=== PATIENT | male | born 1960 | race Caucasian/White ===

== ENCOUNTER 2016-08-15 11:11 | Observation (INO) | payer BC ==
[2016-08-03 12:12] LABS: BASO % 0.4 %; BASO ABS # 0.02 K/uL (0-0.2); COMPLETE YES; EOS % 1.2 %; HEMATOCRIT 40.3 % (42-52); IG% 0.2 %; LYMPH ABS # 1.55 K/uL (1.2-3.4); MEAN CELL VOLUME 84.7 fL (80-100); MEAN CORPUSCULAR HEMOGLOBIN 30.5 pg (25-34); MEAN PLATELET VOLUME 10.3 fL (7.4-10.4); NEUT % 61.2 %; PLATELET COUNT 247 K/uL (130-400); RED BLOOD COUNT 4.76 M/uL (4.7-6.1); WHITE BLOOD COUNT 5.16 K/uL (4.8-10.8)
[2016-08-03 12:16] LABS: URINE APPEARANCE CLEAR (CLEAR); URINE BILIRUBIN NEG (NEG); URINE COLOR YELLOW; URINE NITRITE NEG (NEG); URINE SPECIFIC GRAVITY 1.015 (1.000-1.030); UROBILINOGEN NEG (NEG)
[2016-08-03 12:20] LABS: MANUAL MICROSCOPIC REQUIRED? NO; REVIEW REQ? NO
[2016-08-03 12:21] LABS: PROTHROMBIN TIME (PATIENT) 10.8 SECONDS (9.0-12.0)
[2016-08-03 12:33] LABS: BLOOD UREA NITROGEN 14 mg/dl (7-18); BUN/CREATININE RATIO 19.2 (10-20); CARBON DIOXIDE 29 mmol/L (21-32); CHLORIDE 109 mmol/L (98-107); CREATININE 0.72 mg/dl (0.60-1.40); GLUCOSE 79 mg/dl (70-99); POTASSIUM 3.8 mmol/L (3.5-5.1); SODIUM 144 mmol/L (136-145)
--- NOTE | 2016-08-03 13:27 | DIAGNOSTIC IMAGING REPORT ---
CHEST 2 VIEWS ROUTINE CLINICAL HISTORY: Preoperative evaluation. COMPARISON STUDY: No previous studies for comparison. FINDINGS: Lung volumes are normal. Lungs are clear. There is no pneumothorax or pleural effusion. Cardiac size is normal. Mediastinal contours are normal. There are cholecystectomy clips. There is no evidence of pulmonary edema. IMPRESSION: No acute cardiopulmonary findings. Electronically signed by: Landen Felipe M.D. 08/03/2016 1:26 PM Dictated Date/Time: 08/03/2016 1:25 PM
[2016-08-04 08:10] VITALS: BMI 25.0
--- NOTE | 2016-08-14 09:21 | HISTORY & PHYSICAL EXAMINATION ---
DATE OF ADMISSION: 08/15/2016 FACILITY: [facility]. PROCEDURE: Lumbar spine diskectomy L4-L5, possible instrumentation, and possible fusion L4-L5. HISTORY OF PRESENT ILLNESS: Dolores is a delightful gentleman. He is 56 years of age. He is significantly compromised. He has tried all sorts of conservative measures. He has failed. He is debilitated. He has severe back and lower extremity difficulty. He needs resolution. PAST MEDICAL HISTORY: Negative. PAST SURGICAL HISTORY: Cholecystectomy and shoulder surgery. ALLERGIES: Negative to medications. CURRENT MEDICATIONS: Gabapentin and hydrocodone. FAMILY HISTORY: Negative heart disease and DVT. SOCIAL HISTORY: No alcohol and tobacco abuse. REVIEW OF SYSTEMS: In 12 systems, he denies any fevers, sweats, chills, or any bowel and bladder issues. No pain, cough, or sneeze. Denies chest pain or palpitations. Denies asthma, wheezing, or shortness of breath. No nausea, vomiting or change in bowel or bladder habits. PHYSICAL EXAMINATION: VITAL SIGNS: Height 5 feet 11 inches and weight 185. Blood pressure 120/80, pulse of 80, respiratory rate of 16, and temperature 97.4. GENERAL: Alert and oriented. Mentation normal. HEENT: Pupils react to light and accommodation. Ear, nose and throat clear. CARDIAC: Normal S1 and S2. No S3. EXTREMITIES: He has good capillary refill to his extremities. He has appropriate reflexes, right and left. No clonus or upper extremity difficulty. No skin rashes. He has significant pain with straight leg raising on the right. Slight weakness of dorsiflexion. X-ray showed fairly significant disk herniation at L4-L5, right nerve impingement and facet joint hypertrophy. IMPRESSION: Significant disk herniation at L4-L5 on the right with facet joint hypertrophy. DISPOSITION: Will be laminectomy and diskectomy. We are concerning of possibility of fusion or motion preserving technology with the patient. We are getting the paperwork done. Back brace for support. He is ____. Surgery should be coming up in tomorrow. This will be at [facility] on the 15 of August. I anticipate his hospital stay to be 24-48 hours.
[2016-08-15] VITALS (7 sets, daily range): BP systolic 118–142; BP diastolic 75–91; PULSE 67–97; TEMP 36.7–37.1; O2SAT 93–97; Ht 180.3 cm; Wt 84.1 kg
[~2016-08-15] VITALS: Ht 180.3 cm; Wt 84.1 kg
[~2016-08-15 11:11] MED LIST: CEFAZOLIN 2000 MG/60 ML D5W 60 ML IV SCH; KETO10TA PO; LACTATED RINGER'S 1000ML 1,000 ML IV SCH; NSS 1000ML IV SCH; OXYC-643 PO
[2016-08-15] MEDS ORDERED: LIDOCAINE HCL 2% 2 ML VIAL (20MG/ML) ONE (14:15)
[2016-08-15] MEDS ORDERED: PROPOFOL IV EMULSION 10 MG/ML 20 ML VIAL IV ONE ×2 (14:15→17:51)
[2016-08-15] MEDS ORDERED: NEOSTIGMINE METHYLSULFATE 5 MG/5 ML SYR ONE (14:15)
[2016-08-15] MEDS ORDERED: FENTANYL CITRATE INJ 50 MCG/1 ML 2 ML VIAL ONE ×4 (14:15→18:29)
[2016-08-15] MEDS ORDERED: ONDANSETRON INJ 2 MG/ML 2 ML VIAL ONE (14:15)
[2016-08-15] MEDS ORDERED: GLYCOPYRROLATE INJ 0.2 MG/ML VIAL ONE ×2 (14:15→17:32)
[2016-08-15] MEDS ORDERED: MIDAZOLAM HCL 1 MG/ML 2ML VIAL ONE (14:15)
[2016-08-15] MEDS ORDERED: ROCURONIUM BROMIDE 10 MG/ML 5 ML VIAL ONE (14:15)
[2016-08-15] MEDS ORDERED: DEXAMETHASONE SOD INJ 4 MG/ML VIAL ONE (14:15)
[2016-08-15] MEDS ORDERED: VANCOMYCIN HCL 1000MG/20ML VIAL ONE (16:05)
[2016-08-15] MEDS ORDERED: GELATIN SPONGE SZ 100 ONE (16:06)
[2016-08-15] MEDS ORDERED: THROMBIN FOR SOLN 20000 UNIT KIT ONE (16:06)
--- NOTE | 2016-08-15 16:07 | History & Physical Bridge Note ---
H&P Re-Evaluation Bridge Note: I have examined the patient, reviewed the History & Physical and in the interval since the performance of the History & Physical I have noted the following changes of clinical significance: No changes noted
[2016-08-15] MEDS ORDERED: BACITRACIN 50000 UNIT VIAL ONE (16:08)
[2016-08-15] MEDS ORDERED: BUPIVACAINE/EPINEPHRINE 0.5% MPF 1:200,000 30 ML VIAL ONE ×2 (16:32)
--- NOTE | 2016-08-15 18:07 | [facility] Post Operative Brief Note ---
Immediate Operative Summary Operative Date Aug 15, 2016. Pre-Operative Diagnosis disc herniation L4-L5, right, with facet joint hypertrophy Post-Operative Diagnosis same Procedure(s) Performed laminectomy and discectomy Surgeon Dr. Gates Bioinformatics Analyst Surgeon(s) Tyree Perez PA-C Findings severe stenosis Complication(s) None Disposition Recovery Room / PACU
[2016-08-15] MEDS ORDERED: OXYCODONE/ACETAMINOPHEN 5-325 TAB PO PRN ×2 (18:15)
[2016-08-15] MEDS ORDERED: LORAZEPAM 1 MG TAB PO PRN (18:15)
[2016-08-15] MEDS ORDERED: LORAZEPAM INJ 1 MG in SYRINGE 0.5 ML IV PRN (18:15)
[2016-08-15] MEDS ORDERED: MAGNESIUM HYDROXIDE SUSP 30 ML UDC PO PRN (18:15)
[2016-08-15] MEDS ORDERED: ONDANSETRON INJ 2 MG/ML 2 ML VIAL IV PRN ×2 (18:15→18:30)
[2016-08-15] MEDS ORDERED: HYDROmorphone INJ 2 MG/ML SYR/VIAL IV PRN (18:15)
[2016-08-15] MEDS ORDERED: ACETAMINOPHEN 325 MG TAB PO PRN (18:15)
[2016-08-15] MEDS ORDERED: METOCLOPRAMIDE HCL INJ 5 MG/ML 2 ML VIAL IV PRN (18:15)
[2016-08-15] MEDS ORDERED: PROMETHAZINE HCL INJ 12.5 MG in SODIUM CHLORIDE 0.9% 50ML 50 ML IV PRN (18:15)
[2016-08-15] MEDS ORDERED: HYDROmorphone INJ 1 MG/ML SYR IV PRN (18:15)
[2016-08-15] MEDS ORDERED: ATROPINE SULFATE 0.1 MG/ML 5ML SYR IV PRN (18:30)
[2016-08-15] MEDS ORDERED: FENTANYL CITRATE INJ 50 MCG/1 ML 2 ML VIAL IV PRN (18:30)
[2016-08-15] MEDS ORDERED: MEPERIDINE HCL 25 MG/ML CARP IV PRN (18:30)
[2016-08-15] MEDS ORDERED: MoRPHine SULFATE 10 MG/ML CARP/VIAL IV PRN (18:30)
[2016-08-15] MEDS ORDERED: EpHEDrine SULFATE INJ 50 MG/ML AMP IV PRN (18:30)
--- NOTE | 2016-08-15 18:54 | Anesthesiology Progress Note ---
Anesthesia Post Op Note Date & Time Aug 15, 2016 at 18:55 Vital Signs Pain Intensity: 4.0 Vital Signs Past 12 Hours Date Time Temp Pulse Resp B/P Pulse Ox O2 Delivery O2 Flow Rate FiO2 08/15/16 18:40 81 16 137/81 97 Room Air 08/15/16 18:30 85 16 136/81 100 Mask 10 08/15/16 18:20 86 16 145/84 100 Mask 10 08/15/16 18:14 36.5 81 16 139/81 100 Mask 10 08/15/16 11:43 36.8 67 16 122/79 96 Room Air Notes Mental Status: alert / awake / arousable, participated in evaluation Pt Amnestic to Procedure: Yes Nausea / Vomiting: adequately controlled Pain: adequately controlled Airway Patency, RR, SpO2: stable & adequate BP & HR: stable & adequate Hydration State: stable & adequate Anesthetic Complications: no major complications apparent
--- NOTE | 2016-08-15 19:55 | DIAGNOSTIC IMAGING REPORT ---
LUMBAR SPINE, INTRAOPERATIVE FLUOROSCOPY HISTORY: Decompression/fusion.. FLUOROSCOPY TIME: 1 second. FINDINGS: Intraoperative fluoroscopy was provided for the lumbar spine. 1 fluoroscopic spot images were obtained. IMPRESSION: Fluoroscopy provided for a low lumbar decompression fusion. Electronically signed by: Damián Zarco M.D. 08/15/2016 7:54 PM Dictated Date/Time: 08/15/2016 7:54 PM
[2016-08-15] MEDS: SODIUM CHLORIDE 0.9% 1000ML 1,000 ML IV SCH (20:53)
[2016-08-15] MEDS: KETOROLAC TROMETHAMINE 30 MG/ML VIAL IV SCH (21:26)
[2016-08-15] MEDS ORDERED: IV FLUIDS COMPLETED PRN (22:15)
[2016-08-16] MEDS: CEFAZOLIN IV 2,000 MG in DEXTROSE 5% 50ML 50 ML IV SCH ×3 (00:11→15:42)
[2016-08-16 03:05] VITALS: BP 120/74; PULSE 81; TEMP 36.7; O2SAT 96
[2016-08-16] MEDS: KETOROLAC TROMETHAMINE 30 MG/ML VIAL IV SCH ×3 (04:11→15:42)
[2016-08-16] MEDS ORDERED: BISACODYL 5 MG TABEC PO PRN (06:00)
[2016-08-16] MEDS ORDERED: BISACODYL 10 MG SUPP PR PRN (06:00)
[2016-08-16 06:53] LABS: HEMATOCRIT 40.8 % (42-52)
--- NOTE | 2016-08-16 07:05 | OPERATIVE REPORT ---
DATE OF OPERATION: 08/15/2016 PREOPERATIVE DIAGNOSIS: Spinal stenosis, lumbar spine and disc herniation, lumbar spine L4-L5. POSTOPERATIVE DIAGNOSIS: Same. PROCEDURES: Laminectomy and discectomy L4-L5, foraminotomy, partial facetectomy. SURGEON: Dr. Gates. MUFFLER TENDER: Km Perez PA-C. COMPLICATIONS: Zero. BLOOD LOSS: 200. DESCRIPTION OF PROCEDURE: The patient was taken to the operating room, a general intubated anesthetic provided to the patient, placed prone, shaved, scrubbed, prepped and draped sterile. We made a skin incision with fascial incision, put in a deep self-retaining retractor at the L4-L5 interval marked with x-ray. We did a complete laminectomy at the 4-5 interval, most of 5, most of 4, foraminotomy, partial facetectomy, decompression of nerve roots with significant pressure, particularly on the right hand side. We also did a discectomy and we tethered the dura in a medial direction, did a formal discectomy of the right hand side at L4-L5, piecemealing out the disc material. We irrigated thoroughly. I assessed for any type of instability patterns. I saw that he was stable and safe and no further treatment warranted. I irrigated thoroughly, placed some Gelfoam over the dura. I placed a Hemovac drain deep. I placed vancomycin powder as well. I closed the fascia to fascia with #1 Vicryl suture, 2-0 subcuticular layer and staple gun on the skin. Sterile dressing applied. The patient returned to PACU stable. No complications. I attest to the content of the Intraoperative Record and any orders documented therein. Any exceptio ns are noted below.
[2016-08-16] MEDS ORDERED: HYDR-4383 PO (07:30)
--- NOTE | 2016-08-16 07:31 | Discharge Instructions ---
Discharge Instructions Admission Reason for Admission: Lumbar Iv Disc Displacement Discharge Discharge Diagnosis / Problem: stenosis Discharge Goals Goal(s): Improve function Activity Recommendations Activity Limitations: as noted below Lifting Limitations: gradually increase as tolerated Exercise/Sports Limitations: until after follow-up appointment May Resume Sexual Activity: after follow-up appointment Shower/Bathe: keep incision dry Driving or Machine Use: . Instructions / Follow-Up Instructions / Follow-Up MEDICATIONS: Please take your prescriptions as instructed at your pre-op appointment. SPECIAL CARE: The following information is intended to answer some of the common questions and concerns regarding your surgery. Each patient is an individual and receives individual counselling throughout the course of treatment, from diagnosis to surgery all the way through recovery. What follows is not an exhaustive list, but should be a useful guide to some of the common questions and concerns patients have regarding their surgeries. These are not provided to keep you from calling us; rather, they give you something accurate and concrete to reference as you recover from your procedure. If you need us, we are available to you. As always, if you are not sure about something, call us at [phone]. MEDICAL EMERGENCIES: For these conditions, call 911 or go to your local hospital-based Emergency Department - not [facility] or equivalent. * Paralysis * Severe chest pain or difficulty breathing * Swelling or redness of either leg Spine procedures can be rather complex and though complications are rare, they do occur. In such cases, effective advice regarding emergency situations cannot always be addressed over the telephone. You may be referred to the emergency department for more effective management of your problem. Activity Limitations: It is important to give your body time to heal, so please limit your activities : * In general, don't do anything that moves your spine too much. You should avoid contact sports, twisting or heavy lifting while you recover. * 5-10 pounds is all you should attempt to lift. * You should not plan on driving for approximately 3 weeks and you should avoid traveling more than 30-45 minutes at a time. Longer trips should be broken down with walking breaks spaced appropriately. * Physical therapy is not usually required. * Walking and good posture practices will help you recover and regain your function. * Avoid straining or sudden changes in position. * In general, the goal is to take it easy and recover. Don't cause any new problems. Just relax. Showers: * Do not take a bath, use a Jacuzzi or hot tub or otherwise submerge your incision. * It is usually safe to take a shower 4-5 days after your surgery. * Your incision does not require any special creams or ointments. * Simply clean it with soap and water, dry and re-dress with a clean bandage afterwards. Incision: * Keep incision clean, dry and protected until your first follow-up appointment. * Some amount of drainage and redness is normal. Any drainage should be fairly clear and not have a foul odor. * If you feel anything is wrong or you have excessive drainage, please call us. * Your stitches and radha will be removed 10-14 days after your surgery. At the time of your first post-op visit. * Neck surgeries are typically closed with a suture underneath the skin. The steri-strips over the incision should be maintained until we see you in the office. Bracing: * You may be provided with a back or neck brace to encourage good posture and prevent injury. It will remind you not to do too much as you heal and will alert others to the fact that you have had a surgery. * Back braces may be removed for showers and when you are resting at home. They must be worn when you are walking around for any period of time or for travel. * For neck surgery, you will likely be provided with two cervical collars. The soft collar (Lavinia or foam rubber) is worn most commonly throughout the day and while sleeping. The plastic collar (provided at the hospital) is for showering/bathing. * Except while eating, collars should remain in place. More specifically, bracing is provided for a purpose and should be worn. * Please obtain your brace or collars prior to your operation and bring them to the hospital with you on the day of surgery. * You should also bring your collars to your post-op appointment with Dr. Gates. You should always take good care of your body and practice healthy habits, especially following surgery. You should: * Follow your doctor's treatment plan * Sit and stand properly with good posture (ears over shoulders, shoulders over hips) Don't slouch * Learn to lift correctly * Exercise regularly (low-impact aerobic exercise is especially good, but check with your doctor first) * Generally, be up and walking for 5-10 minutes at a time at least 3-4 times per day from the day you get home * Increasing walking to tolerance until you can walk for 20-30 minutes at a time * Attain and maintain a healthy body weight * Eat healthy foods ( a well-balanced, low-fat diet rich in fruits and vegetables) and get enough calcium * Avoid excessive use of alcohol When to call our office - If you notice any of the following: * Increased pain not relieve by pain medicine * Fevers greater then 100 degrees F, chills or flu symptoms * Increased redness around incision * Drainage from the incision that is not clear * Any foul smelling drainage * Swelling or fluid collection beneath the skin Miscellaneous: * In the hospital, you may be given a walker or cane for support while walking. These are temporary needs and are intended to prevent injuries due to falls. You may discontinue them when you feel strong and steady enough on your feet. * Sleep in a comfortable position. We find that many patients find a lounge chair or recliner with several pillows to be beneficial in the early post-operative period. * The support stockings should be used for 7-10 days and may be discontinued when you are back to walking more and conducting usual household activities. No problem is insignificant. We are here to help you and get you well. Contact us at [phone]. Definitions: Foraminotomy: If part of the disc or a bone spur (osteophyte) is pressing on a nerve as it leaves the vertebra (through an exit called the foramen), a foraminotomy may be done. Otomy means "to make an opening." A foraminotomy is making the opening of the foramen larger, so the nerve can exit without being compressed. Laminotomy: Similar to the foraminotomy, a laminotomy makes a larger opening, this time in your bony plate protecting your spinal canal and spinal cord (the lamina). The lamina may be pressing on your nerve, so the surgeon may make more room for the nerves using a laminotomy. Laminectomy: Sometimes, a laminotomy is not sufficient. The surgeon may need to remove all or part of the lamina. This procedure is called a laminectomy. This can often be done at many levels without any harmful effects. Current Hospital Diet Patient's current hospital diet: Regular Diet Discharge Diet Recommended Diet: Regular Diet Fluid Restriction: None Procedures Procedures Performed: laminectomy and discectomy Pending Studies Studies pending at discharge: no Medical Emergencies . Who to Call and When: Medical Emergencies: If at any time you feel your situation is an emergency, please call 911 immediately. . Non-Emergent Contact Non-Emergency issues call your: Surgeon Call Non-Emergent contact if: you have any medication questions . "Provider Documentation" section prepared by Kushal Gates. VTE Core Measure Inpt VTE Proph given/why not?: Treatment not indicated (dc teds)
--- NOTE | 2016-08-16 07:46 | DISCHARGE SUMMARY ---
SUBJECTIVE: Moderate complaints of pain, no shortness of breath, chest pain. Vital signs stable, 40.8 hematocrit. Afebrile. ASSESSMENT: Status post lumbar spine laminectomy and discectomy lumbar spine done yesterday the . We finished up about 6:00 last evening. DISPOSITION: Will have him up and ambulatory today. Hopefully home later on this evening after 5:00 p.m. Prescriptions on the chart. Instructions on the chart.
[2016-08-16 08:01] VITALS: BP 118/76; PULSE 65; TEMP 36.5; O2SAT 95
--- NOTE | 2016-08-16 08:13 | Anesthesiology Progress Note ---
Anesthesia Post Op Note Date & Time Aug 16, 2016 at 08:13 Vital Signs Pain Intensity: 0.0 Vital Signs Past 12 Hours Date Time Temp Pulse Resp B/P Pulse Ox O2 Delivery O2 Flow Rate FiO2 08/16/16 08:01 36.5 65 20 118/76 95 Room Air 08/16/16 08:00 Room Air 08/16/16 03:05 36.7 81 16 120/74 96 Room Air 08/16/16 00:10 Room Air 08/15/16 23:35 36.7 91 16 118/82 97 Room Air 08/15/16 22:33 90 16 119/75 94 Room Air 08/15/16 21:30 36.8 97 18 127/85 93 Room Air 08/15/16 20:31 37.1 88 18 137/91 96 Room Air Notes Mental Status: alert / awake / arousable, participated in evaluation Pt Amnestic to Procedure: Yes Nausea / Vomiting: adequately controlled Pain: adequately controlled Airway Patency, RR, SpO2: stable & adequate BP & HR: stable & adequate Hydration State: stable & adequate Anesthetic Complications: no major complications apparent
[2016-08-16] MEDS ORDERED: POLYETHYLENE (MIRALAX) 17 GM PACK PO SCH (09:00)
[2016-08-16] MEDS: SODIUM CHLORIDE 0.9% 1000ML 1,000 ML IV SCH (09:00)
[2016-08-16 11:01] VITALS: BP 115/75; PULSE 73; TEMP 37.1; O2SAT 96
[2016-08-16 13:58] VITALS: BP 115/75; PULSE 73; TEMP 37.1; O2SAT 96
[2016-08-16 15:34] VITALS: BP 112/72; PULSE 64; TEMP 36.8; O2SAT 97
--- NOTE | 2016-08-17 11:29 | DISCHARGE SUMMARY ---
SUBJECTIVE: Minimal complaints of pain. Alert, oriented. No chest pain, shortness of breath. OBJECTIVE: Vital signs stable. H\T\H stable. ASSESSMENT: Status post lumbar spine laminectomy. DISPOSITION: Will discharge Dolores home, improved, stable condition. Instructions, precautions provided, 2 different episodes. Medication provided and a followup in the office in 10-12 days. He is to be careful with bending, stooping, lifting. Keep his wound clean and dry at all times.
== END 2016-08-16 16:47 | disposition home or self-care (01) ==
LOC: ENRESERVDT → ENRESERVTM → C.ACU 11:11 → C.3E 18:12
PROVIDERS: ADMIT Orthopaedic Surgery Orthopaedic Surgery of the Spine; ATTEND Orthopaedic Surgery Orthopaedic Surgery of the Spine
DX: M51.26 Other intervertebral disc displacement, lumbar region (principal); M48.06 Spinal stenosis, lumbar region